=== PATIENT | female | born 1990 | race Caucasian/White ===

== ENCOUNTER 2019-09-30 13:44 | Emergency (ER) | payer OTHER ==
[~2019-09-30] VITALS: Ht 165.1 cm; Wt 89.4 kg
[2019-09-30] MEDS ORDERED: PRENATABS FA T1 EACH (14:10)
[2019-09-30] MEDS ORDERED: ACIDO FOLICO (14:11)
== END 2019-09-30 18:32 | disposition home or self-care (01) ==
LOC: ER 13:44
DX: O26.851 Spotting complicating pregnancy, first trimester (principal); O36.80X1 Pregnancy with inconclusive fetal viability, fetus 1; O34.11 Maternal care for benign tumor of corpus uteri, first trimester; Z3A.10 10 weeks gestation of pregnancy

== ENCOUNTER → 2019-12-08 | Outpatient (CLI) | payer OTHER ==
[~2019-12-08] MED LIST: ACIDO FOLICO; PRENATABS FA T1 EACH
== END | disposition home or self-care (01) ==
LOC: PRENATAL 11:00
PROVIDERS: ATTEND Obstetrics & Gynecology Maternal & Fetal Medicine
DX: O98.512 Other viral diseases complicating pregnancy, second trimester (principal); O35.3XX1 Maternal care for (suspected) damage to fetus from viral disease in mother, fetus 1; O28.1 Abnormal biochemical finding on antenatal screening of mother; O34.12 Maternal care for benign tumor of corpus uteri, second trimester; O99.212 Obesity complicating pregnancy, second trimester; Z36.89 Encounter for other specified antenatal screening; Z3A.21 21 weeks gestation of pregnancy

== ENCOUNTER 2020-04-10 15:15 | Inpatient (IN) | payer OTHER ==
[~2020-04-10] VITALS: Ht 165.1 cm; Wt 101.6 kg
[2020-04-18] MEDS ORDERED: FOLIC ACID0.4 MG (09:18)
== END 2020-04-20 11:53 | disposition home or self-care (01) | DRG 788 ==
LOC: LDR 04-18 08:41 → OB/GYN 04-18 21:18
PROVIDERS: ADMIT Obstetrics & Gynecology; ATTEND Obstetrics & Gynecology
PROC: 4A1HXFZ Monitoring of Products of Conception, Cardiac Rhythm, External Approach (ICD-10-PCS; 2020-04-18)
PROC: 10907ZC Drainage of Amniotic Fluid, Therapeutic from Products of Conception, Via Natural or Artificial Opening (ICD-10-PCS; 2020-04-18)
PROC: 10D00Z1 Extraction of Products of Conception, Low, Open Approach (ICD-10-PCS; principal; 2020-04-18 16:00)
DX: O65.5 Obstructed labor due to abnormality of maternal pelvic organs (principal); O34.13 Maternal care for benign tumor of corpus uteri, third trimester; O99.824 Streptococcus B carrier state complicating childbirth; Z37.0 Single live birth; Z3A.39 39 weeks gestation of pregnancy; Z20.828 Contact with and (suspected) exposure to other viral communicable diseases

== ENCOUNTER 2021-09-04 09:44 | Emergency (ER) | payer OTHER ==
[~2021-09-04] VITALS: Ht 165.1 cm; Wt 93.0 kg
[~2021-09-04 09:44] MED LIST changes: +FOLIC ACID0.4 MG
[2021-09-04] MEDS ORDERED: LORYNA 3 MG-0.1 EACH (10:19)
== END 2021-09-04 13:45 | disposition home or self-care (01) ==
LOC: ER 09:44
DX: N93.9 Abnormal uterine and vaginal bleeding, unspecified (principal)